=== PATIENT | female | born 1975 | race African-American/Black ===

== ENCOUNTER 2022-06-19 08:08 | Inpatient (IN) ==
[2022-06-19] MEDS ORDERED: SODIUM CHLORIDE 0.9% 1,000 ML IV STA (08:56)
[2022-06-19 09:03] LABS: Hemoglobin 12.9 GM/DL (12.0-16.0); Immature Granulocytes Absolute 0.04 #; Lymphocytes # 0.1 10*3/uL (1.4-4.0); Mean Corpuscular HGB Conc 33.9 GM/DL (32-36); Mean Corpuscular Volume 81.7 FL (87-102); Red Blood Count 4.65 MC/CUMM (3.8-5.5)
[2022-06-19 09:07] LABS: White Blood Count 0.4 T/CUMM (4-12)
[2022-06-19 09:08] LABS: Platelet Count 83 T/CUMM (130-400)
[2022-06-19 09:24] LABS: Albumin 2.9 G/DL (3.4-5.0); Calcium 9.7 MG/DL (8.5-10.1); Osmolality,Calculated 263.8 MOS/KG (273-304); Total Protein 7.2 G/DL (6.4-8.2)
[2022-06-19 09:29] LABS: Hypochromia 1+; Lymphocytes 40 % (20-55); Nucleated Red Blood Cells 2 /100 WBC (0-5); Target Cells Few; Total Cells Counted 100
[2022-06-19 09:30] LABS: Microcytosis 1+
[2022-06-19] MEDS ORDERED: HYDROmorphone 1 MG/1 ML SYRINGE IV STA (10:48)
[2022-06-19] MEDS ORDERED: DICYCLOMINE 20 MG TABLET PO STA (10:52)
[2022-06-19] MEDS ORDERED: CEFEPIME 1,000 MG in SODIUM CHLORIDE 0.9% 100 ML IV STA (12:05)
[2022-06-19] MEDS ORDERED: VANCOMYCIN INJ 1,000 MG in SODIUM CHLORIDE 0.9% 250 ML IV STA (12:05)
[2022-06-19] MEDS ORDERED: SODIUM CHLORIDE 0.9% 1,650 ML IV STA (12:43)
[2022-06-19] MEDS ORDERED: GLUCAGON 1 MG VIAL IM PRN (12:44)
[2022-06-19] MEDS ORDERED: DEXTROSE 10% 250 ML BAG IV PRN (12:44)
[2022-06-19] MEDS ORDERED: ONDANSETRON 4 MG/2 ML VIAL IV PRN (12:44)
[2022-06-19] MEDS: HYDROCORTISONE 100 MG VIAL IV SCH ×2 (13:44→20:38)
[2022-06-19] MEDS ORDERED: FILGRASTIM-SNDZ 300 MCG/0.5 ML SYRINGE SUBCUT SCH (14:00)
[2022-06-19] MEDS: MICAFUNGIN 100 MG in SODIUM CHLORIDE 0.9% 100 ML IV SCH (14:47)
[2022-06-19] MEDS: FILGRASTIM-SNDZ 480 MCG/0.8 ML SYRINGE SUBCUT SCH (14:54)
[2022-06-19] MEDS ORDERED: MICAFUNGIN 100 MG in SODIUM CHLORIDE 0.9% 100 ML IV SCH (15:00)
[2022-06-19] MEDS: SODIUM CHLORIDE 0.9% 1,000 ML IV SCH ×2 (15:05→17:53)
[2022-06-19] MEDS: metroNIDAZOLE INJ 500 MG/100 ML PREMIX IV SCH (17:37)
[2022-06-19] MEDS ORDERED: ACETAMINOPHEN 325 MG TABLET PO PRN (17:46)
[2022-06-19] MEDS: CEFEPIME 1,000 MG in SODIUM CHLORIDE 0.9% 100 ML IV SCH (20:39)
[2022-06-20] MEDS: metroNIDAZOLE INJ 500 MG/100 ML PREMIX IV SCH ×3 (01:27→17:21)
[2022-06-20] MEDS: HYDROCORTISONE 100 MG VIAL IV SCH ×4 (01:27→21:49)
[2022-06-20 02:48] LABS: Mucus,Urine Occasional /LPF (Occasional); Squamous Epithelial Cell,Urine Occasional /HPF (0-10); Urine Appearance Clear (Clear); Urine Color Yellow (Yellow); Urine Specific Gravity 1.025 (1.001-1.035); Urine pH 5.5 (4.5-8.0)
[2022-06-20 02:49] LABS: Bilirubin,Urine Small mg/dL (Negative); Blood, Urine Negative (Negative); Glucose,Urine (UA) Negative (Negative); Ketones,Urine 15 mg/dL (Negative); Nitrite,Urine Negative (Negative); Protein,Urine Negative (Negative); Urine Urobilinogen 0.2 eU/dL (<2.0)
[2022-06-20] MEDS: HYDROmorphone 1 MG/1 ML SYRINGE IV PRN ×3 (02:56→21:50)
[2022-06-20] MEDS: CEFEPIME 1,000 MG in SODIUM CHLORIDE 0.9% 100 ML IV SCH ×4 (03:57→21:49)
[2022-06-20] MEDS: SODIUM CHLORIDE 0.9% 1,000 ML IV SCH ×2 (05:47→17:19)
[2022-06-20 06:39] LABS: Hematocrit 30.1 VOL% (35.7-47.0); Lymphocytes # 0.1 10*3/uL (1.4-4.0); Lymphocytes % 31.8 % (21.3-54.2); Mean Corpuscular HGB Conc 34.9 GM/DL (32-36); Mean Corpuscular Volume 80.3 FL (87-102); Monocytes % 9.1 % (1.7-12.7); Neutrophils % 59.1 % (38.7-73.9); Red Blood Count 3.75 MC/CUMM (3.8-5.5); Red Cell Distribution Width 19.6 % (9.3-17.3)
[2022-06-20 06:51] LABS: Hemoglobin 10.5 GM/DL (12.0-16.0); Platelet Count 58 T/CUMM (130-400); White Blood Count 0.2 T/CUMM (4-12)
[2022-06-20 06:59] LABS: Albumin 2.4 G/DL (3.4-5.0); Bilirubin,Total 3.3 MG/DL (0.20-1.00); Calcium 8.3 MG/DL (8.5-10.1); Osmolality,Calculated 263.7 MOS/KG (273-304); Potassium 4.6 MMOL/L (3.5-5.1); Total Protein 6.2 G/DL (6.4-8.2)
[2022-06-20 07:00] LABS: Lymphocytes 20 % (20-55); Platelet Estimate Decreased; Total Cells Counted 100
[2022-06-20] MEDS: FILGRASTIM-SNDZ 480 MCG/0.8 ML SYRINGE SUBCUT SCH (09:52)
[2022-06-20] MEDS: DIPHENOXYLATE/ATROPINE 2.5-0.025 MG TABLET PO PRN (10:17)
[2022-06-20] MEDS: MYLANTA/LIDO VISC/NYST 180 ML BOTTLE SWISH/SPIT PRN (14:59)
[2022-06-20] MEDS: MICAFUNGIN 100 MG in SODIUM CHLORIDE 0.9% 100 ML IV SCH (16:16)
[2022-06-21] MEDS: HYDROCORTISONE 100 MG VIAL IV SCH ×4 (02:23→21:23)
[2022-06-21] MEDS: metroNIDAZOLE INJ 500 MG/100 ML PREMIX IV SCH ×3 (02:25→17:17)
[2022-06-21] MEDS: DIPHENOXYLATE/ATROPINE 2.5-0.025 MG TABLET PO PRN (03:05)
[2022-06-21] MEDS: CEFEPIME 1,000 MG in SODIUM CHLORIDE 0.9% 100 ML IV SCH ×4 (04:51→21:23)
[2022-06-21] MEDS: MYLANTA/LIDO VISC/NYST 180 ML BOTTLE SWISH/SPIT PRN (04:52)
[2022-06-21 05:04] LABS: Hematocrit 29.3 VOL% (35.7-47.0); Hemoglobin 9.9 GM/DL (12.0-16.0); Immature Granulocytes % 10.7 %; Immature Granulocytes Absolute 0.03 #; Lymphocytes # 0.1 10*3/uL (1.4-4.0); Mean Corpuscular HGB Conc 33.8 GM/DL (32-36); Mean Corpuscular Volume 80.7 FL (87-102); Monocytes # 0.1 10*3/uL (0.11-0.8); Monocytes % 32.1 % (1.7-12.7); NRBC # 0.02 10*3/uL; Neutrophils % 32.2 % (38.7-73.9); Platelet Count 46 T/CUMM (130-400); Red Blood Count 3.63 MC/CUMM (3.8-5.5); Red Cell Distribution Width 19.3 % (9.3-17.3)
[2022-06-21 05:06] LABS: White Blood Count 0.3 T/CUMM (4-12)
[2022-06-21 05:55] LABS: Hypochromia 1+; Lymphocytes 32 % (20-55); Microcytosis 1+; Target Cells Few; Total Cells Counted 100
[2022-06-21 05:56] LABS: Platelet Estimate Decreased
[2022-06-21] MEDS: HYDROmorphone 1 MG/1 ML SYRINGE IV PRN ×2 (08:26→21:37)
[2022-06-21] MEDS: FILGRASTIM-SNDZ 480 MCG/0.8 ML SYRINGE SUBCUT SCH (09:46)
[2022-06-21] MEDS: SODIUM CHLORIDE 0.9% 1,000 ML IV SCH ×3 (13:26→18:01)
[2022-06-21] MEDS: MICAFUNGIN 100 MG in SODIUM CHLORIDE 0.9% 100 ML IV SCH (15:55)
[2022-06-22] MEDS: HYDROmorphone 1 MG/1 ML SYRINGE IV PRN ×2 (00:22→12:33)
[2022-06-22 01:18] LABS: Hemoglobin 9.9 GM/DL (12.0-16.0); Immature Granulocytes % 1.9 %; Immature Granulocytes Absolute 0.01 #; Lymphocytes # 0.1 10*3/uL (1.4-4.0); Lymphocytes % 19.2 % (21.3-54.2); Mean Corpuscular HGB Conc 34.1 GM/DL (32-36); Mean Corpuscular Volume 81.5 FL (87-102); Monocytes # 0.3 10*3/uL (0.11-0.8); Monocytes % 59.6 % (1.7-12.7); NRBC # 0.02 10*3/uL; Neutrophils % 19.3 % (38.7-73.9); Platelet Count 54 T/CUMM (130-400); Red Blood Count 3.56 MC/CUMM (3.8-5.5); Red Cell Distribution Width 19.4 % (9.3-17.3)
[2022-06-22 01:20] LABS: White Blood Count 0.5 T/CUMM (4-12)
[2022-06-22] MEDS: HYDROCORTISONE 100 MG VIAL IV SCH ×3 (01:25→14:08)
[2022-06-22 01:48] LABS: Albumin 2.1 G/DL (3.4-5.0); Bilirubin,Total 2.3 MG/DL (0.20-1.00); Calcium 7.7 MG/DL (8.5-10.1); Lymphocytes 72 % (20-55); Osmolality,Calculated 274.8 MOS/KG (273-304); Potassium 3.8 MMOL/L (3.5-5.1); Total Cells Counted 101; Total Protein 5.3 G/DL (6.4-8.2)
[2022-06-22 01:49] LABS: Nucleated Red Blood Cells 2 /100 WBC (0-5); Platelet Estimate Decreased
[2022-06-22 01:50] LABS: Schistocytes Few; Target Cells Few
[2022-06-22] MEDS: metroNIDAZOLE INJ 500 MG/100 ML PREMIX IV SCH ×2 (02:07→09:59)
[2022-06-22] MEDS: CEFEPIME 1,000 MG in SODIUM CHLORIDE 0.9% 100 ML IV SCH ×3 (04:00→15:25)
[2022-06-22] MEDS: SODIUM CHLORIDE 0.9% 1,000 ML IV SCH ×2 (04:00→15:25)
[2022-06-22] MEDS: FILGRASTIM-SNDZ 480 MCG/0.8 ML SYRINGE SUBCUT SCH (12:35)
[2022-06-22 13:55] VITALS: BP 151/90
[2022-06-22] MEDS: MICAFUNGIN 100 MG in SODIUM CHLORIDE 0.9% 100 ML IV SCH (15:25)
[2022-06-24 16:06] LABS: CDT Result Negative (Negative); CDT Specimen Source STOOL
== END 2022-06-22 15:02 | disposition home or self-care (01) | DRG 871 ==
LOC: N.ED 08:08 → N.EDINP 12:44 → SUATTDRO 12:44 → N.EDINP 15:35 → N.TELES 15:45
PROVIDERS: ADMIT Internal Medicine; ATTEND Internal Medicine Geriatric Medicine

== ENCOUNTER 2022-09-05 05:54 | Inpatient (IN) ==
[2022-09-05] MEDS ORDERED: ONDANSETRON ODT 4 MG TABLET PO ONE (06:21)
[2022-09-05] MEDS ORDERED: ONDANSETRON 4 MG/2 ML VIAL ONE (06:28)
[2022-09-05] MEDS ORDERED: ONDANSETRON 4 MG/2 ML VIAL IV STA (06:31)
[2022-09-05] MEDS ORDERED: SODIUM CHLORIDE 0.9% 1,000 ML IV STA ×2 (06:36→06:42)
[2022-09-05 06:37] LABS: Basophils % 0.2 % (0.0-0.8); Hematocrit 38.9 VOL% (35.7-47.0); Hemoglobin 13.7 GM/DL (12.0-16.0); Immature Granulocytes % 0.7 %; Immature Granulocytes Absolute 0.04 #; Lymphocytes # 0.3 10*3/uL (1.4-4.0); Lymphocytes % 5.6 % (21.3-54.2); Mean Corpuscular HGB Conc 35.2 GM/DL (32-36); Mean Corpuscular Volume 87.2 FL (87-102); Mean Platelet Volume 11.6 FL (9.6-12.0); Monocytes # 0.2 10*3/uL (0.11-0.8); Monocytes % 3.1 % (1.7-12.7); Neutrophils % 90.4 % (38.7-73.9); Platelet Count 244 T/CUMM (130-400); Red Blood Count 4.46 MC/CUMM (3.8-5.5); White Blood Count 5.4 T/CUMM (4-12)
[2022-09-05] MEDS ORDERED: HYDROmorphone 1 MG/1 ML SYRINGE IV STA (06:48)
[2022-09-05 06:58] LABS: Alanine Aminotransferase 117 U/L (13-56); Albumin 3.1 G/DL (3.4-5.0); Alkaline Phosphatase 351 U/L (45-117); Aspartate Amino Transferase 277 U/L (0-37); Blood Urea Nitrogen 21 MG/DL (7-18); Calcium 8.9 MG/DL (8.5-10.1); Carbon Dioxide 20 MMOL/L (21-32); Chloride 105 MMOL/L (98-107); Glucose 116 MG/DL (74-106); Osmolality,Calculated 276.8 MOS/KG (273-304); Potassium 4.8 MMOL/L (3.5-5.1); Sodium 137 MMOL/L (136-145)
[2022-09-05] MEDS ORDERED: PROMETHAZINE 25 MG TABLET PO PRN (08:19)
[2022-09-05] MEDS ORDERED: ONDANSETRON 4 MG TABLET PO PRN (08:19)
[2022-09-05] MEDS ORDERED: CIPROFLOXACIN 500 MG TABLET PO SCH (08:30)
[2022-09-05] MEDS ORDERED: PANTOPRAZOLE 40 MG TABLET PO SCH (09:00)
[2022-09-05] MEDS: oxyCODONE IR 5 MG TABLET PO PRN (09:49)
[2022-09-05] MEDS: LACTATED RINGERS 1,000 ML IV SCH ×2 (10:00→17:23)
[2022-09-05 10:18] LABS: Hepatitis B Core IgM Quant 0.26 Index; Hepatitis B Surface Ag Quant 0.13 Index; Hepatitis B Surface Ag Result Non-Reactive (NonReactive); Hepatitis C Virus Ab Quant < 0.02 Index; Hepatitis C Virus Ab Result Non-Reactive (NonReactive)
[2022-09-05] MEDS: HYDROmorphone 1 MG/1 ML SYRINGE IV PRN ×3 (10:50→21:40)
[2022-09-05 10:53] LABS: INR 1.2; PT Patient Result 13.5 SECS (10.1-12.1); Partial Thromboplastin Time 25.9 SECS (23.7-32.9)
[2022-09-05 13:48] LABS: Mucus,Urine Many /LPF (Occasional); RBC,Urine 4 /HPF (0-4); Squamous Epithelial Cell,Urine Few /HPF (0-10)
[2022-09-05 13:50] LABS: Urine Appearance Clear (Clear); Urine Color Dark Yellow (Yellow)
[2022-09-05 13:51] LABS: Protein,Urine 30 mg/dL (Negative); Urine Specific Gravity >= 1.030 (1.001-1.035); Urine pH 5.5 (4.5-8.0)
[2022-09-05 13:52] LABS: Bilirubin,Urine Large mg/dL (Negative); Blood, Urine Negative (Negative); Glucose,Urine (UA) Negative (Negative); Ketones,Urine 15 mg/dL (Negative); Nitrite,Urine Negative (Negative)
[2022-09-05] MEDS: hydrOXYzine HCL 25 MG TABLET PO PRN (14:17)
[2022-09-05] MEDS ORDERED: MAGNESIUM HYDROXIDE SUSP 30 ML UDCUP PO ONE (15:00)
[2022-09-05] MEDS: NYSTATIN 500,000 UNIT/5 ML UDCUP PO SCH ×4 (15:53→21:00)
[2022-09-06] MEDS: CIPROFLOXACIN/DEXAMETHASONE OTIC SUSP 7.5 ML BOTTLE BOTH EARS SCH ×3 (00:47→22:59)
[2022-09-06] MEDS: POLYETHYLENE GLYCOL POWDER 17 GM PACK PO SCH ×4 (00:48→22:58)
[2022-09-06] MEDS: LETROZOLE 2.5 MG TABLET PO SCH ×3 (04:44→14:29)
[2022-09-06 05:02] LABS: Basophils % 0.3 % (0.0-0.8); Eosinophils % 0.6 % (0.00-10.9); Hematocrit 31.2 VOL% (35.7-47.0); Hemoglobin 11.2 GM/DL (12.0-16.0); Immature Granulocytes % 1.2 %; Immature Granulocytes Absolute 0.04 #; Lymphocytes # 0.4 10*3/uL (1.4-4.0); Lymphocytes % 10.4 % (21.3-54.2); Mean Corpuscular HGB Conc 35.9 GM/DL (32-36); Mean Corpuscular Volume 86.2 FL (87-102); Mean Platelet Volume 10.4 FL (9.6-12.0); Monocytes # 0.3 10*3/uL (0.11-0.8); Monocytes % 8.3 % (1.7-12.7); Neutrophils % 79.2 % (38.7-73.9); Platelet Count 126 T/CUMM (130-400); Red Blood Count 3.62 MC/CUMM (3.8-5.5); Red Cell Distribution Width 17.2 % (9.3-17.3); White Blood Count 3.4 T/CUMM (4-12)
[2022-09-06 05:28] LABS: Target Cells Slight
[2022-09-06 05:30] LABS: Albumin 2.6 G/DL (3.4-5.0); Bilirubin,Total 6.5 MG/DL (0.20-1.00); Calcium 8.2 MG/DL (8.5-10.1); Osmolality,Calculated 272.8 MOS/KG (273-304); Potassium 4.1 MMOL/L (3.5-5.1); Total Protein 5.8 G/DL (6.4-8.2)
[2022-09-06] MEDS: LACTATED RINGERS 1,000 ML IV SCH ×3 (06:37→16:28)
[2022-09-06] MEDS: HYDROmorphone 1 MG/1 ML SYRINGE IV PRN ×4 (08:10→21:54)
[2022-09-06] MEDS: BISACODYL 5 MG TABLET PO SCH ×2 (08:15→14:29)
[2022-09-06] MEDS: hydrOXYzine HCL 25 MG TABLET PO PRN (08:15)
[2022-09-06] MEDS: PANTOPRAZOLE 40 MG TABLET PO SCH ×2 (08:16→14:29)
[2022-09-06] MEDS: NYSTATIN 500,000 UNIT/5 ML UDCUP PO SCH ×5 (08:16→22:58)
[2022-09-06] MEDS ORDERED: POLYETHYLENE GLYCOL POWDER 17 GM PACK PO SCH (09:00)
[2022-09-06] MEDS: ONDANSETRON 4 MG/2 ML VIAL IV PRN ×4 (09:20→21:55)
[2022-09-06] MEDS ORDERED: HYDROmorphone 1 MG/1 ML SYRINGE IV ONE (14:28)
[2022-09-06] MEDS ORDERED: MORPHINE 2 MG/1 ML SYRINGE IV ONE (19:45)
[2022-09-06] MEDS ORDERED: PROMETHAZINE 25 MG/1 ML VIAL IM ONE (19:49)
[2022-09-06] MEDS: DOCUSATE SODIUM 100 MG CAPSULE PO SCH (22:58)
[2022-09-07] MEDS: PANTOPRAZOLE 40 MG VIAL IV SCH ×3 (00:53→21:26)
[2022-09-07] MEDS: METOCLOPRAMIDE 10 MG/2 ML VIAL IV SCH ×4 (00:55→18:06)
[2022-09-07] MEDS: HYDROmorphone 1 MG/1 ML SYRINGE IV PRN ×4 (01:04→17:30)
[2022-09-07] MEDS: LACTATED RINGERS 1,000 ML IV SCH ×3 (01:59→15:28)
[2022-09-07] MEDS: ONDANSETRON 4 MG/2 ML VIAL IV PRN ×2 (04:52→08:16)
[2022-09-07 05:08] LABS: Basophils % 0.7 % (0.0-0.8); Hematocrit 31.7 VOL% (35.7-47.0); Hemoglobin 11.6 GM/DL (12.0-16.0); Lymphocytes # 0.1 10*3/uL (1.4-4.0); Lymphocytes % 6.1 % (21.3-54.2); Mean Corpuscular HGB Conc 36.6 GM/DL (32-36); Mean Corpuscular Volume 86.4 FL (87-102); Mean Platelet Volume 10.7 FL (9.6-12.0); Monocytes % 1.4 % (1.7-12.7); Neutrophils % 91.8 % (38.7-73.9); Platelet Count 140 T/CUMM (130-400); Red Blood Count 3.67 MC/CUMM (3.8-5.5); Red Cell Distribution Width 17.4 % (9.3-17.3); White Blood Count 1.5 T/CUMM (4-12)
[2022-09-07 05:26] LABS: Albumin 2.8 G/DL (3.4-5.0); Bilirubin,Total 7.6 MG/DL (0.20-1.00); Calcium 8.6 MG/DL (8.5-10.1); Osmolality,Calculated 274.1 MOS/KG (273-304); Potassium 4.2 MMOL/L (3.5-5.1); Total Protein 5.7 G/DL (6.4-8.2)
[2022-09-07 05:46] LABS: Band Neutrophils 5 % (0-10); Eosinophils 1 % (0-10); Lymphocytes 12 % (20-55); Nucleated Red Blood Cells 3 /100 WBC (0-5); Polychromasia Slight; Target Cells Slight; Total Cells Counted 100
[2022-09-07 05:47] LABS: Acanthocytes Few; Macrocytosis Slight
[2022-09-07] MEDS: oxyCODONE IR 5 MG TABLET PO PRN (07:37)
[2022-09-07] MEDS ORDERED: ADENOSINE 6 MG/2 ML VIAL ONE (08:20)
[2022-09-07] MEDS ORDERED: ADENOSINE 6 MG/2 ML VIAL IV ONE (08:23)
[2022-09-07] MEDS ORDERED: SODIUM CHLORIDE 0.9% 500 ML IV ONE ×2 (08:29→08:53)
[2022-09-07] MEDS ORDERED: MORPHINE 10 MG/1 ML VIAL ONE (08:31)
[2022-09-07] MEDS ORDERED: METOCLOPRAMIDE 10 MG/2 ML VIAL IV ONE (08:33)
[2022-09-07] MEDS ORDERED: MORPHINE 2 MG/1 ML SYRINGE IV ONE (08:33)
[2022-09-07] MEDS ORDERED: METOPROLOL TARTRATE 5 MG/5 ML VIAL IV ONE ×2 (08:36→10:17)
[2022-09-07] MEDS ORDERED: ENOXAPARIN 80 MG/0.8 ML SYRINGE SUBCUT ONE ×2 (08:36→08:37)
[2022-09-07 09:00] LABS: Arterial Base Excess iSTAT -10 MMOL/L (-2.5-2.5); Arterial Bicarbonate iSTAT 13.8 MMOL/L (20-26); Arterial O2 Saturation iSTAT 91 % (95-100); Arterial PCO2 iSTAT 24 MM HG (35-48); Arterial PO2 iSTAT 60 MM HG (80-95); Arterial Total CO2 iSTAT 15 MMO/L (23-27); Arterial pH iSTAT 7.365 (7.35-7.45)
[2022-09-07 09:05] LABS: Alanine Aminotransferase 153 U/L (13-56); Albumin 2.7 G/DL (3.4-5.0); Alkaline Phosphatase 271 U/L (45-117); Aspartate Amino Transferase 364 U/L (0-37); Blood Urea Nitrogen 24 MG/DL (7-18); Calcium 8.1 MG/DL (8.5-10.1); Carbon Dioxide 19 MMOL/L (21-32); Chloride 104 MMOL/L (98-107); Glucose 105 MG/DL (74-106); Osmolality,Calculated 276.8 MOS/KG (273-304); Potassium 3.9 MMOL/L (3.5-5.1); Sodium 137 MMOL/L (136-145); Total Protein 5.5 G/DL (6.4-8.2)
[2022-09-07 09:07] LABS: Hematocrit 32.2 VOL% (35.7-47.0); Hemoglobin 11.4 GM/DL (12.0-16.0); Immature Granulocytes % 10.7 %; Immature Granulocytes Absolute 0.03 #; Lymphocytes % 10.7 % (21.3-54.2); Mean Corpuscular HGB Conc 35.4 GM/DL (32-36); Mean Corpuscular Volume 89.4 FL (87-102); Mean Platelet Volume 9.7 FL (9.6-12.0); Monocytes % 3.6 % (1.7-12.7); NRBC # 0.03 10*3/uL; Platelet Count 136 T/CUMM (130-400); Red Cell Distribution Width 18.1 % (9.3-17.3)
[2022-09-07 09:15] LABS: White Blood Count 0.3 T/CUMM (4-12)
[2022-09-07] MEDS: DOCUSATE SODIUM 100 MG CAPSULE PO SCH ×2 (09:32→21:25)
[2022-09-07] MEDS: POLYETHYLENE GLYCOL POWDER 17 GM PACK PO SCH ×3 (09:32→21:26)
[2022-09-07] MEDS: NYSTATIN 500,000 UNIT/5 ML UDCUP PO SCH ×4 (09:33→21:26)
[2022-09-07] MEDS: LETROZOLE 2.5 MG TABLET PO SCH (09:33)
[2022-09-07] MEDS: CIPROFLOXACIN/DEXAMETHASONE OTIC SUSP 7.5 ML BOTTLE BOTH EARS SCH ×2 (09:33→21:25)
[2022-09-07 09:40] LABS: Band Neutrophils 10 % (0-10); Lymphocytes 10 % (20-55); Nucleated Red Blood Cells 1 /100 WBC (0-5); Total Cells Counted 100
[2022-09-07 09:41] LABS: Macrocytosis Slight; Ovalocytes Slight; Target Cells Slight
[2022-09-07 09:42] LABS: Polychromasia Slight
[2022-09-07 09:43] LABS: Platelet Estimate Adequate
[2022-09-07] MEDS ORDERED: DIAZEPAM 10 MG/2 ML SYRINGE IV ONE ×2 (10:11→14:16)
[2022-09-07 11:15] LABS: Phosphorous 1.9 MG/DL (2.5-4.9)
[2022-09-07] MEDS ORDERED: cefTRIAXone 1,000 MG in SODIUM CHLORIDE 0.9% 100 ML IV SCH (12:00)
[2022-09-07] MEDS: metroNIDAZOLE INJ 500 MG/100 ML PREMIX IV SCH ×2 (12:18→21:26)
[2022-09-07] MEDS ORDERED: LORazepam 2 MG/1 ML VIAL ONE (12:54)
[2022-09-07] MEDS ORDERED: LORazepam 2 MG/1 ML VIAL IV ONE (12:57)
[2022-09-07] MEDS ORDERED: ETOMIDATE 20 MG/10 ML VIAL IV ONE ×2 (13:03→13:31)
[2022-09-07] MEDS ORDERED: SUCCINYLCHOLINE 200 MG/10 ML VIAL ONE (13:04)
[2022-09-07] MEDS ORDERED: SUCCINYLCHOLINE 200 MG/10 ML VIAL IV ONE (13:31)
[2022-09-07 13:40] VITALS: BP 81/64
[2022-09-07] MEDS: FILGRASTIM-SNDZ 480 MCG/0.8 ML SYRINGE SUBCUT SCH (13:42)
[2022-09-07] MEDS ORDERED: fentaNYL INJ 1,250 MCG in SODIUM CHLORIDE 0.9% 225 ML IV PRN (13:42)
[2022-09-07] MEDS: MIDAZOLAM DRIP 100 MG/100 ML PREMIX IV PRN ×2 (13:45→23:37)
[2022-09-07] MEDS ORDERED: POTASSIUM PHOSPHATE 15 MMOL in SODIUM CHLORIDE 0.9% 100 ML IV ONE (14:05)
[2022-09-07] MEDS ORDERED: MAGNESIUM SULF RIDER 2 GM/50 ML PREMIX IV ONE (14:05)
[2022-09-07] MEDS ORDERED: SODIUM BICARBONATE 50 MEQ/50 ML VIAL IV ONE ×2 (14:09→23:30)
[2022-09-07] MEDS ORDERED: LACTATED RINGERS 2,000 ML IV ONE (14:09)
[2022-09-07] MEDS ORDERED: VASOPRESSIN 100 UNITS in SODIUM CHLORIDE 0.9% 95 ML IV PRN (14:10)
[2022-09-07] MEDS: NOREPINEPHRINE 8 MG in SODIUM CHLORIDE 0.9% 242 ML IV PRN ×2 (14:10→21:27)
[2022-09-07 14:12] LABS: Arterial Base Excess iSTAT -15 MMOL/L (-2.5-2.5); Arterial Bicarbonate iSTAT 11.3 MMOL/L (20-26); Arterial O2 Saturation iSTAT 81 % (95-100); Arterial PCO2 iSTAT 26 MM HG (35-48); Arterial PO2 iSTAT 52 MM HG (80-95); Arterial Total CO2 iSTAT 12 MMO/L (23-27); Arterial pH iSTAT 7.245 (7.35-7.45)
[2022-09-07] MEDS ORDERED: NOREPINEPHRINE 4 MG/4 ML VIAL IV ONE (14:12)
[2022-09-07 14:13] LABS: Mucus,Urine Many /LPF (Occasional); RBC,Urine 1 /HPF (0-4)
[2022-09-07 14:15] LABS: Glucose,Urine (UA) Negative (Negative); Ketones,Urine 15 mg/dL (Negative); Protein,Urine 100 mg/dL (Negative); Urine Appearance Clear (Clear); Urine Color Brown (Yellow); Urine Specific Gravity >= 1.030 (1.001-1.035); Urine pH 5.5 (4.5-8.0)
[2022-09-07 14:16] LABS: Bilirubin,Urine Large mg/dL (Negative); Blood, Urine Negative (Negative); Nitrite,Urine Negative (Negative)
[2022-09-07] MEDS ORDERED: methylPREDNISolone SOD SUC 125 MG/2 ML VIAL IV ONE (14:16)
[2022-09-07] MEDS ORDERED: DEXTROSE 50% 25 GM/50 ML SYRINGE IV ONE (14:28)
[2022-09-07] MEDS ORDERED: SODIUM BICARB INJ 150 MEQ in STERILE WATER INJ 850 ML IV SCH (14:30)
[2022-09-07] MEDS ORDERED: VANCOMYCIN INJ 1,000 MG in SODIUM CHLORIDE 0.9% 250 ML IV ONE (15:00)
[2022-09-07] MEDS: PIPERACILLIN/TAZOBACTAM 3,375 MG in SODIUM CHLORIDE 0.9% 100 ML IV SCH (15:28)
[2022-09-07] MEDS ORDERED: SODIUM BICARB INJ 150 MEQ in DEXTROSE 5% 850 ML IV SCH (16:00)
[2022-09-07] MEDS ORDERED: MIDAZOLAM DRIP 100 MG/100 ML PREMIX IV PRN (17:15)
[2022-09-07] MEDS: SODIUM BICARB INJ 150 MEQ in DEXTROSE 5% 1,000 ML IV SCH (17:40)
[2022-09-07 19:33] LABS: ABG Base Excess -6.5 MMOL/L (-2.5-2.5); ABG HCO3 19.1 MMOL/L (20-26); ABG Oxygen Saturation 99.7 % (95-100); ABG PCO2 30.4 MM HG (35-48); ABG PH 7.374 (7.35-7.45)
[2022-09-08] MEDS: METOCLOPRAMIDE 10 MG/2 ML VIAL IV SCH ×2 (00:26→05:04)
[2022-09-08] MEDS: NOREPINEPHRINE 16 MG in SODIUM CHLORIDE 0.9% 234 ML IV PRN ×4 (00:27→13:05)
[2022-09-08] MEDS ORDERED: SODIUM BICARB INJ 150 MEQ in STERILE WATER INJ 1,000 ML IV SCH (02:00)
[2022-09-08] MEDS: SODIUM BICARB INJ 150 MEQ in DEXTROSE 5% 1,000 ML IV SCH ×3 (02:46→20:40)
[2022-09-08] MEDS ORDERED: ALBUMIN 5% 12.5 GM/250 ML VIAL IV ONE (03:30)
[2022-09-08 04:22] LABS: Basophils % 0.9 % (0.0-0.8); Eosinophils % 0.5 % (0.00-10.9); Hemoglobin 10.8 GM/DL (12.0-16.0); Immature Granulocytes % 0.9 %; Immature Granulocytes Absolute 0.02 #; Lymphocytes # 0.1 10*3/uL (1.4-4.0); Lymphocytes % 4.6 % (21.3-54.2); Mean Corpuscular Volume 86.5 FL (87-102); Mean Platelet Volume 10.9 FL (9.6-12.0); Monocytes # 0.2 10*3/uL (0.11-0.8); Monocytes % 7.8 % (1.7-12.7); NRBC # 0.14 10*3/uL; Neutrophils % 85.3 % (38.7-73.9); Platelet Count 79 T/CUMM (130-400); Red Blood Count 3.47 MC/CUMM (3.8-5.5); Red Cell Distribution Width 17.6 % (9.3-17.3); White Blood Count 2.2 T/CUMM (4-12)
[2022-09-08 04:40] LABS: Arterial Bicarbonate iSTAT 15.2 MMOL/L (20-26); Arterial pH iSTAT 7.389 (7.35-7.45)
[2022-09-08 04:49] LABS: Lymphocytes 13 % (20-55); Nucleated Red Blood Cells 1 /100 WBC (0-5); Platelet Estimate Decreased; Total Cells Counted 100
[2022-09-08] MEDS: HYDROmorphone 1 MG/1 ML SYRINGE IV PRN (05:00)
[2022-09-08] MEDS: metroNIDAZOLE INJ 500 MG/100 ML PREMIX IV SCH ×3 (05:04→20:41)
[2022-09-08 05:09] LABS: Albumin 2.3 G/DL (3.4-5.0); Bilirubin,Total 5.4 MG/DL (0.20-1.00); Phosphorous 4.3 MG/DL (2.5-4.9); Potassium 4.4 MMOL/L (3.5-5.1); Total Protein 4.7 G/DL (6.4-8.2)
[2022-09-08] MEDS: PIPERACILLIN/TAZOBACTAM 3,375 MG in SODIUM CHLORIDE 0.9% 100 ML IV SCH ×4 (06:00→23:14)
[2022-09-08] MEDS: DOCUSATE SODIUM 100 MG CAPSULE PO SCH (08:12)
[2022-09-08] MEDS: POLYETHYLENE GLYCOL POWDER 17 GM PACK PO SCH (08:12)
[2022-09-08] MEDS: NYSTATIN 500,000 UNIT/5 ML UDCUP PO SCH ×4 (08:12→20:41)
[2022-09-08] MEDS: LETROZOLE 2.5 MG TABLET PO SCH (08:12)
[2022-09-08] MEDS: FILGRASTIM-SNDZ 480 MCG/0.8 ML SYRINGE SUBCUT SCH (08:12)
[2022-09-08] MEDS: PANTOPRAZOLE 40 MG VIAL IV SCH ×2 (08:12→20:41)
[2022-09-08] MEDS: CIPROFLOXACIN/DEXAMETHASONE OTIC SUSP 7.5 ML BOTTLE BOTH EARS SCH ×2 (08:29→20:40)
[2022-09-08] MEDS: MIDAZOLAM DRIP 100 MG/100 ML PREMIX IV PRN (12:38)
[2022-09-08] MEDS: NOREPINEPHRINE 32 MG in SODIUM CHLORIDE 0.9% 468 ML IV PRN (17:05)
[2022-09-09] MEDS: NOREPINEPHRINE 32 MG in SODIUM CHLORIDE 0.9% 468 ML IV PRN ×2 (02:26→20:53)
[2022-09-09] MEDS: MIDAZOLAM DRIP 100 MG/100 ML PREMIX IV PRN ×2 (02:27→16:25)
[2022-09-09 03:08] LABS: ABG Base Excess -9.6 MMOL/L (-2.5-2.5); ABG HCO3 16.8 MMOL/L (20-26); ABG PCO2 26.3 MM HG (35-48); ABG PH 7.355 (7.35-7.45); ABG TCO2 13.3 MMOL/L (23-27)
[2022-09-09 03:17] LABS: Basophils % 0.9 % (0.0-0.8); Eosinophils # 0.1 10*3/uL (0.0-0.87); Eosinophils % 2.4 % (0.00-10.9); Hematocrit 29.7 VOL% (35.7-47.0); Hemoglobin 10.6 GM/DL (12.0-16.0); Immature Granulocytes % 1.2 %; Immature Granulocytes Absolute 0.05 #; Lymphocytes # 0.1 10*3/uL (1.4-4.0); Lymphocytes % 1.2 % (21.3-54.2); Mean Corpuscular HGB Conc 35.7 GM/DL (32-36); Mean Corpuscular Volume 86.8 FL (87-102); Monocytes # 0.4 10*3/uL (0.11-0.8); Monocytes % 8.5 % (1.7-12.7); NRBC # 0.45 10*3/uL; Neutrophils % 85.8 % (38.7-73.9); Platelet Count 43 T/CUMM (130-400); Red Blood Count 3.42 MC/CUMM (3.8-5.5); Red Cell Distribution Width 18.1 % (9.3-17.3); White Blood Count 4.3 T/CUMM (4-12)
[2022-09-09 03:45] LABS: Lymphocytes 3 % (20-55); Nucleated Red Blood Cells 7 /100 WBC (0-5); Platelet Estimate Decreased; Total Cells Counted 100
[2022-09-09 03:54] LABS: Albumin 1.9 G/DL (3.4-5.0); Bilirubin,Total 7.5 MG/DL (0.20-1.00); Calcium 6.1 MG/DL (8.5-10.1); Osmolality,Calculated 277.1 MOS/KG (273-304); Potassium 5.2 MMOL/L (3.5-5.1); Total Protein 4.3 G/DL (6.4-8.2)
[2022-09-09] MEDS: metroNIDAZOLE INJ 500 MG/100 ML PREMIX IV SCH ×3 (05:45→20:53)
[2022-09-09] MEDS: SODIUM BICARB INJ 150 MEQ in DEXTROSE 5% 1,000 ML IV SCH ×2 (06:31→15:45)
[2022-09-09] MEDS: PIPERACILLIN/TAZOBACTAM 3,375 MG in SODIUM CHLORIDE 0.9% 100 ML IV SCH ×3 (06:32→23:44)
[2022-09-09] MEDS ORDERED: methylPREDNISolone SOD SUC 40 MG/1 ML VIAL IV SCH (08:00)
[2022-09-09] MEDS ORDERED: CALCIUM CHLORIDE 1,000 MG/10 ML SYRINGE IV ONE (08:30)
[2022-09-09] MEDS: LETROZOLE 2.5 MG TABLET PO SCH (08:40)
[2022-09-09] MEDS: NYSTATIN 500,000 UNIT/5 ML UDCUP PO SCH ×4 (08:40→20:53)
[2022-09-09] MEDS ORDERED: CALCIUM GLUCONATE RIDER 1,000 MG/50 ML PREMIX IV ONE (08:41)
[2022-09-09] MEDS: CIPROFLOXACIN/DEXAMETHASONE OTIC SUSP 7.5 ML BOTTLE BOTH EARS SCH ×2 (08:41→20:53)
[2022-09-09] MEDS: PANTOPRAZOLE 40 MG VIAL IV SCH ×2 (08:44→20:53)
[2022-09-09] MEDS: HYDROCORTISONE 100 MG VIAL IV SCH ×3 (08:58→20:53)
[2022-09-09] MEDS: FILGRASTIM-SNDZ 480 MCG/0.8 ML SYRINGE SUBCUT SCH (08:58)
[2022-09-09] MEDS: DEXTROSE 10% 250 ML BAG IV PRN ×2 (18:42)
[2022-09-10] MEDS: SODIUM BICARB INJ 150 MEQ in DEXTROSE 5% 1,000 ML IV SCH ×2 (00:36→09:33)
[2022-09-10] MEDS: MIDAZOLAM DRIP 100 MG/100 ML PREMIX IV PRN (02:47)
[2022-09-10] MEDS: HYDROCORTISONE 100 MG VIAL IV SCH ×2 (02:54→08:25)
[2022-09-10 04:15] LABS: Basophils # 0.1 10*3/uL (0.0-0.2); Hematocrit 27.9 VOL% (35.7-47.0); Hemoglobin 9.8 GM/DL (12.0-16.0); Immature Granulocytes % 2.5 %; Immature Granulocytes Absolute 0.23 #; Lymphocytes % 0.4 % (21.3-54.2); Mean Corpuscular HGB Conc 35.1 GM/DL (32-36); Mean Corpuscular Volume 88.6 FL (87-102); Monocytes # 1.1 10*3/uL (0.11-0.8); Monocytes % 11.8 % (1.7-12.7); Neutrophils % 84.3 % (38.7-73.9); Red Blood Count 3.15 MC/CUMM (3.8-5.5); Red Cell Distribution Width 18.5 % (9.3-17.3); White Blood Count 9.1 T/CUMM (4-12)
[2022-09-10 04:19] LABS: Platelet Count 33 T/CUMM (130-400)
[2022-09-10 04:26] LABS: Arterial Base Excess iSTAT -9 MMOL/L (-2.5-2.5); Arterial Bicarbonate iSTAT 15.4 MMOL/L (20-26); Arterial O2 Saturation iSTAT 100 % (95-100); Arterial PCO2 iSTAT 29 MM HG (35-48); Arterial PO2 iSTAT 236 MM HG (80-95); Arterial Total CO2 iSTAT 16 MMO/L (23-27); Arterial pH iSTAT 7.336 (7.35-7.45)
[2022-09-10 04:35] LABS: Osmolality,Calculated 276.2 MOS/KG (273-304); Potassium 5.8 MMOL/L (3.5-5.1)
[2022-09-10 04:39] LABS: Lymphocytes 3 % (20-55); Nucleated Red Blood Cells 16 /100 WBC (0-5); Platelet Estimate Decreased; Target Cells Slight; Total Cells Counted 100
[2022-09-10 04:49] LABS: Calcium 5.2 MG/DL (8.5-10.1)
[2022-09-10] MEDS: metroNIDAZOLE INJ 500 MG/100 ML PREMIX IV SCH (05:26)
[2022-09-10] MEDS: PIPERACILLIN/TAZOBACTAM 3,375 MG in SODIUM CHLORIDE 0.9% 100 ML IV SCH (06:19)
[2022-09-10] MEDS: NOREPINEPHRINE 32 MG in SODIUM CHLORIDE 0.9% 468 ML IV PRN (06:56)
[2022-09-10] MEDS ORDERED: CALCIUM GLUCONATE RIDER 1,000 MG/50 ML PREMIX IV ONE (07:21)
[2022-09-10] MEDS ORDERED: SODIUM BICARBONATE 50 MEQ/50 ML VIAL IV ONE (07:21)
[2022-09-10] MEDS ORDERED: MEROPENEM 500 MG in SODIUM CHLORIDE 0.9% 100 ML IV SCH (08:00)
[2022-09-10] MEDS: HYDROmorphone 1 MG/1 ML SYRINGE IV PRN (08:28)
[2022-09-10] MEDS ORDERED: SODIUM BICARBONATE 650 MG TABLET PO SCH (09:00)
[2022-09-10] MEDS: NYSTATIN 500,000 UNIT/5 ML UDCUP PO SCH (09:33)
[2022-09-10] MEDS: CIPROFLOXACIN/DEXAMETHASONE OTIC SUSP 7.5 ML BOTTLE BOTH EARS SCH (09:33)
[2022-09-10] MEDS: LETROZOLE 2.5 MG TABLET PO SCH (09:33)
[2022-09-10] MEDS ORDERED: METOPROLOL TARTRATE 5 MG/5 ML VIAL IV ONE (10:32)
[2022-09-10] MEDS ORDERED: LORazepam 2 MG/1 ML VIAL IV PRN (10:44)
[2022-09-10] MEDS ORDERED: MORPHINE 2 MG/1 ML SYRINGE IV PRN (10:44)
[2022-09-10] MEDS: FILGRASTIM-SNDZ 480 MCG/0.8 ML SYRINGE SUBCUT SCH (10:53)
== END 2022-09-10 13:00 | disposition expired | DRG 435 ==
LOC: N.ED 05:54 → N.EDINP 08:18 → SUATTDRO 08:18 → N.EDINP 13:30 → N.5E 13:54 → N.ICU 09-07 08:52
PROVIDERS: ADMIT Internal Medicine; ATTEND Internal Medicine